=== PATIENT | female | born 1990 ===

== ENCOUNTER 2019-03-14 17:19 | Emergency (ER) | payer SELFPAY ==
[2019-03-14 17:28] VITALS: RESP 18; TEMP 98.6; O2SAT 99
[2019-03-14] MEDS ORDERED: Sodium Chloride 0.9% 1,000 ML IV STA (17:41)
--- NOTE | 2019-03-14 17:44 | ED PDOC ---
Arrival/HPI - General Chief Complaint: Abdominal Pain Time Seen by Provider: 03/14/19 17:24 Historian: Patient - History of Present Illness Narrative History of Present Illness (Text): 03/14/19 17:41 28-year-old female presents today with a 2-day history of abdominal pain nausea vomiting and diarrhea. Patient states yesterday she had 5 episodes of vomiting and 7 or 8 episodes of diarrhea. Patient states today she had 2 episodes of vomiting and about 6 episodes of diarrhea. Patient is complaining of a lower abdominal cramping sensation. She denies back pain. No chest pain or shortness of breath. Patient denies any sick contacts at home. Patient denies fevers or chills. No other complaints Quality: Cramping Severity Level: Mild Past Medical History - Provider Review Nursing Documentation Reviewed: Yes - Travel History Have you recently traveled outside [place] w/in the past 3 mons?: No - Tetanus Immunization Tetanus Immunization: Unknown - Psychiatric Hx Substance Use: No - Surgical History Other/Comment: Liposuction Family/Social History - Physician Review Nursing Documentation Reviewed: Yes Family/Social History: Unknown Family HX Smoking Status: Never Smoked Hx Alcohol Use: No Hx Substance Use: No Allergies/Home Meds Allergies/Adverse Reactions: Allergies No Known Allergies Allergy (Verified 03/14/19 17:28) Review of Systems - Review of Systems Constitutional: absent: Fatigue, Fevers Respiratory: absent: SOB, Cough Cardiovascular: absent: Chest Pain, Palpitations Gastrointestinal: Abdominal Pain, Diarrhea, Nausea, Vomiting Genitourinary Female: absent: Dysuria, Frequency, Hematuria Musculoskeletal: absent: Arthralgias, Back Pain, Neck Pain Skin: absent: Rash, Pruritis Neurological: absent: Headache, Dizziness Psychiatric: absent: Anxiety, Depression, Suicidal Ideation Physical Exam Vital Signs Reviewed: Yes Vital Signs Temp Pulse Resp BP Pulse Ox 03/14/19 17:24 98.6 F 96 H 18 141/88 99 Temperature: Afebrile Blood Pressure: Normal Pulse: Regular Respiratory Rate: Normal Appearance: Positive for: Well-Appearing, Non-Toxic, Comfortable Pain Distress: None Mental Status: Positive for: Alert and Oriented X 3 - Systems Exam Head: Present: Atraumatic Mouth: Present: Moist Mucous Membranes Neck: Present: Normal Range of Motion Respiratory/Chest: Present: Clear to Auscultation, Good Air Exchange. No: Respiratory Distress, Accessory Muscle Use Cardiovascular: Present: Regular Rate and Rhythm, Normal S1, S2. No: Murmurs Abdomen: Present: Tenderness (+ minimal lower abdominal pain tenderness), Normal Bowel Sounds. No: Distention, Peritoneal Signs, Rebound, Guarding Back: Present: Normal Inspection. No: CVA Tenderness, Midline Tenderness, Paraspinal Tenderness Upper Extremity: Present: Normal ROM Lower Extremity: Present: Normal ROM Neurological: Present: GCS=15, Speech Normal Skin: Present: Warm, Dry, Normal Color. No: Rashes Psychiatric: Present: Alert, Oriented x 3 Medical Decision Making ED Course and Treatment: 03/14/19 17:47 Patient is nontoxic well appearing with stable vital signs presenting with lower abdominal pain, nausea/vomiting, diarrhea. CBC: wbc; 12.5 CMP: k:3.5 Lipase: wnl Urinalysis: + trace leukocytes CAT scan: PENDING Patient reassessment: pt is non toxic well appearing; no distress. stable vitals. Impression: Abdominal pain, UTI, vomiting/diarrhea 03/14/19 19:19 Patient reassessment: Patient denies any complaints at present time. Case signed out to SUNIL Parekh pending CAT scan result and reevaluation. - RAD Interpretation Radiology Orders: 03/14/19 17:40 ABD & PELVIS IV CONTRAST ONLY [CT] Stat - Medication Orders Current Medication Orders: Sodium Chloride (Sodium Chloride 0.9%) 1,000 mls @ 999 mls/hr IV .Q1H1M STA Stop: 03/14/19 18:41 Ondansetron HCl (Zofran Inj) 4 mg IVP STAT STA Stop: 03/14/19 17:42 Disposition/Present on Arrival - Present on Arrival Any Indicators Present on Arrival: No History of DVT/PE: No History of Uncontrolled Diabetes: No Urinary Catheter: No History of Decub. Ulcer: No History Surgical Site Infection Following: None - Disposition Have Diagnosis and Disposition been Completed?: Yes Diagnosis: Abdominal pain, Urinary tract infection, Nausea & vomiting, Diarrhea Disposition: HOME/ ROUTINE Disposition Time: 19:20 Patient Plan: Discharge, Other Condition: STABLE Discharge Instructions (ExitCare): Urinary Tract Infections in Adults, Nausea and Vomiting, Adult (DC) Additional Instructions: Drink plenty of fluid and follow BRAT diet Follow up with a GI/Urologist Return to ED for worsening or persistent symptoms Prescriptions: Cephalexin [cephalexin] 500 mg PO TID #21 cap Famotidine [Pepcid] 40 mg PO DAILY #10 tab Ondansetron ODT [Zofran ODT] 4 mg PO Q6 #7 odt Referrals: Samuel Israel MD [Staff Provider] - Follow up with primary Cece Boo MD [Medical Doctor] - Follow up with primary Kailash Friedman DO [Staff Provider] - Follow up with primary Forms: [employer] (Italian), WORK NOTE
[2019-03-14 18:04] LABS: BASO # 0.03 K/mm3 (0.0-2.0); BASO % 0.2 % (0.0-3.0); EOS % 0.3 % (1.5-5.0); HEMOGLOBIN 11.7 g/dL (12.0-16.0); MEAN CELL VOLUME 73.9 fl (80.0-105.0); MEAN CORPUSCULAR HEMOGLOBIN 23.4 pg (25.0-35.0); MEAN CORPUSCULAR HGB CONC 31.6 g/dl (31.0-37.0); MEAN PLATELET VOLUME 9.7 fl (7.0-11.0); MONO # 1.4 (0.1-0.6); MONO % 11.4 % (1.0-6.0); RBC 5.01 10^6/uL (3.5-6.1); RED CELL DISTRIBUTION WIDTH 13.3 % (11.5-14.5); WHITE BLOOD COUNT 12.4 10^3/uL (4.5-11.0)
[2019-03-14 18:05] LABS: URINE BILIRUBIN NEGATIVE (NEGATIVE); URINE BLOOD NEGATIVE (NEGATIVE); URINE GLUCOSE (UA) NEGATIVE (NEGATIVE); URINE LEUKOCYTE ESTERASE TRACE Leu/uL (NEGATIVE); URINE PROTEIN NEGATIVE mg/dL (<30 mg/dL); URINE UROBILINOGEN 0.2 E.U./dL (<1 E.U./dL)
[2019-03-14 18:07] LABS: URINE APPEARANCE CLEAR (CLEAR); URINE COLOR YELLOW (YELLOW)
[2019-03-14 18:26] LABS: ALB/GLOB RATIO 1.3 (1.1-1.8); ALBUMIN 4.1 g/dL (3.0-4.8); ALT/SGPT 36 U/L (7-56); AST/SGOT 24 U/L (14-36); BLOOD UREA NITROGEN 12 mg/dL (7-21); CALCIUM 8.5 mg/dL (8.4-10.5); GFR NON-AFRICAN AMERICAN > 60; LIPASE 73 U/L (23-300)
[2019-03-14 18:33] LABS: URINE BACTERIA FEW /hpf; URINE EPITHELIAL CELLS MANY /hpf (0-5)
[2019-03-14] MEDS ORDERED: Iohexol 350 MG/100 ML VIAL ONE (18:54)
--- NOTE | 2019-03-14 19:53 | ED PDOC ---
Physical Exam Vital Signs Temp Pulse Resp BP Pulse Ox 03/14/19 18:54 86 18 115/61 99 03/14/19 17:24 98.6 F 96 H 18 141/88 99 Medical Decision Making ED Course and Treatment: 03/14/19 19:52 Case endorsed to me by Jillian Hernandez. Pending CAT scan results and evaluation. 03/14/2019 19:43 Abd/Pelvis CT IMPRESSION: 1. Enteritis. Infectious and inflammatory etiologies are considered. Consider consultation with GI service. 2. Nonspecific subcutaneous infiltration involving the anterior abdominal wall. 3. Complex right ovarian cyst is seen measuring 17 mm. Dictator: Osbaldo Gomez M.D. 03/14/19 21:07 On reevaluation pt noted that her pain resolved. She was able to tolerate PO fluid in ED. Her CT result was noted above and was discussed in detail with the patient. She given Keflex for UTI, pepcid and Zofran for abdominal pain/vomiting. She was advised to drink plenty of fluid and follow BRAT diet. She was referred to a GI/Urologist. Advised to return to the ED for worsening symptoms. she expressed understanding of the given instructions. - Lab Interpretations Lab Results: Total Bilirubin 0.2 mg/dL (0.2-1.3) 03/14/19 17:50 AST 24 U/L (14-36) 03/14/19 17:50 ALT 36 U/L (7-56) 03/14/19 17:50 Alkaline Phosphatase 87 U/L (38-126) 03/14/19 17:50 Total Protein 7.1 g/dL (5.8-8.3) 03/14/19 17:50 Albumin 4.1 g/dL (3.0-4.8) 03/14/19 17:50 Globulin 3.1 gm/dL 03/14/19 17:50 Albumin/Globulin Ratio 1.3 (1.1-1.8) 03/14/19 17:50 Lipase 73 U/L (23-300) 03/14/19 17:50 Urine Color Yellow (YELLOW) 03/14/19 17:50 Urine Appearance Clear (CLEAR) 03/14/19 17:50 Urine pH 6.0 (4.7-8.0) 03/14/19 17:50 Ur Specific [place] >= 1.030 (1.005-1.035) 03/14/19 17:50 Urine Protein Negative mg/dL (<30 mg/dL) 03/14/19 17:50 Urine Glucose (UA) Negative mg/dL (NEGATIVE) 03/14/19 17:50 Urine Ketones Trace mg/dL (NEGATIVE) H 03/14/19 17:50 Urine Blood Negative (NEGATIVE) 03/14/19 17:50 Urine Nitrate Negative (NEGATIVE) 03/14/19 17:50 Urine Bilirubin Negative (NEGATIVE) 03/14/19 17:50 Urine Urobilinogen 0.2 E.U./dL (<1 E.U./dL) 03/14/19 17:50 Ur Leukocyte Esterase Trace Dorian/uL (NEGATIVE) H 03/14/19 17:50 Urine RBC None /hpf (0-2) 03/14/19 17:50 Urine WBC 5 - 10 /hpf (0-6) H 03/14/19 17:50 Ur Epithelial Cells Many /hpf (0-5) H 03/14/19 17:50 Urine Bacteria Few /hpf (NONE) 03/14/19 17:50 - RAD Interpretation Radiology Orders: 03/14/19 17:40 ABD & PELVIS IV CONTRAST ONLY [CT] Stat - Medication Orders Current Medication Orders: Discontinued Medications Sodium Chloride (Sodium Chloride 0.9%) 1,000 mls @ 999 mls/hr IV .Q1H1M STA Stop: 03/14/19 18:41 Last Admin: 03/14/19 18:14 Dose: 999 mls/hr eMAR Start Stop Document 03/14/19 18:14 [facility] (Rec[facility] 03[facility]14/19 18:15 [id number] Intravenous Solution Start Date 03/14/19 Start Time 18:15 End Date 03/14/19 End time 19:15 Total Infusion Time 60 Ondansetron HCl (Zofran Inj) 4 mg IVP STAT STA Stop: 03/14/19 17:42 Last Admin: 03/14/19 18:14 Dose: 4 mg IVP Administration Document 03/14/19 18:14 [facility] (Rec: 03/14/19 18:14 [id number] Charges for Administration # of IVP Administrations 1 - Scribe Statement The provider has reviewed the documentation as recorded by the Erik Nava Provider Scribe Attestation: All medical record entries made by the Scribe were at my direction and personally dictated by me. I have reviewed the chart and agree that the record accurately reflects my personal performance of the history, physical exam, medical decision making, and the department course for this patient. I have also personally directed, reviewed, and agree with the discharge instructions and disposition. Disposition/Present on Arrival - Present on Arrival Any Indicators Present on Arrival: No History of DVT/PE: No History of Uncontrolled Diabetes: No Urinary Catheter: No History of Decub. Ulcer: No History Surgical Site Infection Following: None - Disposition Have Diagnosis and Disposition been Completed?: Yes Diagnosis: Abdominal pain, Urinary tract infection, Nausea & vomiting, Diarrhea Disposition: HOME/ ROUTINE Disposition Time: 20:45 Patient Plan: Discharge Patient Problems: Current Active Problems Problem Status Onset Abdominal pain Acute Diarrhea Acute Nausea & vomiting Acute Urinary tract infection Acute Condition: STABLE Discharge Instructions (ExitCare): Urinary Tract Infections in Adults, Nausea and Vomiting, Adult (DC) Additional Instructions: Drink plenty of fluid and follow BRAT diet Follow up with a GI/Urologist Return to ED for worsening or persistent symptoms Prescriptions: Cephalexin [cephalexin] 500 mg PO TID #21 cap Famotidine [Pepcid] 40 mg PO DAILY #10 tab Ondansetron ODT [Zofran ODT] 4 mg PO Q6 #7 odt Referrals: Cece Boo MD [Medical Doctor] - Follow up with primary Kailash Friedman DO [Staff Provider] - Follow up with primary Samuel Israel MD [Staff Provider] - Follow up with primary Forms: [employer] (Uzbek), WORK NOTE
[2019-03-14 21:24] VITALS: BP 117/62; PULSE 82
--- NOTE | 2019-03-15 09:22 | CT ---
Date of service: 03/14/2019 PROCEDURE: CT Abdomen and Pelvis with contrast HISTORY: lower abdominal pain, vomiting/diarrhea COMPARISON: None. TECHNIQUE: Contrast dose: 100 mL Omnipaque 350 Radiation dose: Total exam DLP = 488.06 mGy-cm. This CT exam was performed using one or more of the following dose reduction techniques: Automated exposure control, adjustment of the mA and/or kV according to patient size, and/or use of iterative reconstruction technique. FINDINGS: LOWER THORAX: Unremarkable. LIVER: Unremarkable. No gross lesion or ductal dilatation. GALLBLADDER AND BILE DUCTS: Unremarkable. PANCREAS: Unremarkable. No gross lesion or ductal dilatation. SPLEEN: Unremarkable. ADRENALS: Unremarkable. No mass. KIDNEYS AND URETERS: Unremarkable. No hydronephrosis. No solid mass. VASCULATURE: Unremarkable. No aortic aneurysm. No aortic atherosclerotic calcification or mural plaque present. BOWEL: Colonic diverticulosis. No obstruction. No gross mural thickening. APPENDIX: Normal appendix. PERITONEUM: Nonspecific stranding in the subcutaneous tissues. No free fluid. No free air. LYMPH NODES: Unremarkable. No enlarged lymph nodes. BLADDER: Unremarkable. REPRODUCTIVE: Involuting right corpus luteal follicle.. BONES: No acute fracture. OTHER FINDINGS: None. IMPRESSION: No acute abdominal pelvic pathology. Nonspecific stranding in the subcutaneous abdominal wall soft tissues.
== END 2019-03-14 20:55 | disposition home or self-care (01) ==
LOC: ED 17:19
DX: N39.0 Urinary tract infection, site not specified (principal); R11.2 Nausea with vomiting, unspecified; R19.7 Diarrhea, unspecified; R10.9 Unspecified abdominal pain
CPT/HCPCS: 74177; 80053; 81001; 81025; 83690; 85025; 87086; 96361; 96374; 99283; J2405; J7030; Q9967